=== PATIENT | male | born 1990 | race Two or more races ===

== ENCOUNTER 2025-04-26 11:12 | Emergency (ER) | payer OTHER ==
[~2025-04-26] VITALS: Ht 175.3 cm; Wt 99.8 kg
[2025-04-26] MEDS ORDERED: CIPROFLOXACIN IN 5 % DEXTROSE 400 MG/200 ML PIGGYBAG IV ONE ×2 (16:00→16:46)
[2025-04-26] MEDS ORDERED: 0.9 % SODIUM CHLORIDE 1,000 ML IV SCH (16:00)
[2025-04-26] MEDS ORDERED: METRONIDAZOLE/SODIUM CHLORIDE 500 MG/100 ML PIGGYBACK IV ONE ×2 (16:00→16:46)
[2025-04-26] MEDS ORDERED: FAMOTIDINE/PF 20 MG/2 ML VIAL IV ONE (16:00)
[2025-04-26] MEDS ORDERED: FAMOTIDINE/PF 20 MG/2 ML VIAL ONE (16:46)
[2025-04-26 17:41] LABS: BASO % 0.5 % (0.1-1.2); EOS # 0.17 (0.04-0.54); EOS % 2.3 % (0.7-7.0); LYMPH # 2.79 (1.18-3.74); LYMPH % 37.6 % (19.3-53.1); MEAN PLATELET VOLUME 10.60 fl (9.4-12.4); MONO # 1.04 (0.24-0.82); NEUT # 3.34 (1.56-6.13); NEUT % 45.1 % (34.0-71.1); RED CELL DISTRIBUTION WIDTH 12.5 % (11.6-14.4)
[2025-04-26 17:48] LABS: MONO % 14.0 % (4.7-12.5)
[2025-04-26 18:09] LABS: ERYTHROCYTE SEDIMENTATION RATE 22 mm/hr (0-15)
[2025-04-26 18:10] LABS: ALT/SGPT 33.0 U/L (12-78); AST/SGOT 22.0 U/L (15-37); BILIRUBIN TOTAL 0.34 mg/dL (0.3-1.2); BUN CREA RATIO 21.0 (7.0-25.0); CREATININE SERUM 0.86 mg/dL (0.70-1.30); GFR 103.05; GLOBULINA 4.3 G/DL (2.4-3.5); GLUCOSE FASTING 88.0 mg/dL (65-100); OSMOLALITY SERUM 281.0 MOSM/KG (275-295)
[2025-04-26 18:29] LABS: URINE APPEARANCE Clear; URINE BILIRRUBIN Negative (NEGATIVE); URINE BLOOD Large; URINE COLOR Yellow; URINE GLUCOSE Negative (NEGATIVE); URINE KETONE Negative (NEGATIVE); URINE LEUKOCYTE Negative; URINE NITRATE Negative; URINE PROTEIN Negative (NEGATIVE); URINE UROBILINOGEN 0.2 E.U./dl
[2025-04-26 18:32] LABS: URINE RBC 30.5 uL (0.0-20.8); URINE WBC 6.5 uL (0.0-23.2)
[2025-04-26 20:05] LABS: URINE BACTERIA 0 uL (0.0-1933); URINE CAST 0.14 uL (0.0-1.40); URINE EPITHELIAL CELLS 1.2 uL (0.0-38.8)
[2025-04-26] MEDS ORDERED: CIPRO500 MG PO (21:30)
[2025-04-26] MEDS ORDERED: DICY20TA PO (21:30)
[2025-04-26] MEDS ORDERED: METRONIDAZOLE500 MG PO (21:30)
[2025-04-26] MEDS ORDERED: PIPERACILLIN/TAZOBACTAM SODIUM 3.375 GM in DEXTROSE 5 % IN WATER 100 ML IV ONE (21:30)
[2025-04-26] MEDS ORDERED: PEPCID AC20 MG PO (21:30)
[2025-04-26] MEDS ORDERED: 8HR ARTHRITIS650 M1 PO (21:30)
== END 2025-04-26 22:06 | disposition home or self-care (01) ==
LOC: ER 11:13
PROVIDERS: Student in an Organized Health Care Education/Training Program
DX: K57.32 Diverticulitis of large intestine without perforation or abscess without bleeding (principal); M19.90 Unspecified osteoarthritis, unspecified site; N39.0 Urinary tract infection, site not specified